=== PATIENT | male | born 1945 | race Caucasian/White ===

== ENCOUNTER 2022-07-22 09:00 | Emergency (ER) | payer MEDICARE, SELFPAY ==
[2022-07-22 09:05] VITALS: BP 127/79; PULSE 92; RESP 20; TEMP 36.1; O2SAT 96; BMI 33.4
--- NOTE | 2022-07-22 09:15 | CRLHL7_ITS ---
For Patients: As a result of the Century Cures Act, medical imaging exams and procedure reports are released immediately into your electronic medical record. You may view this report before your referring provider. If you have questions, please contact your health care provider. Indication: Fall, T11-12 pain extending to the right Technique: Noncontrast axial CT of the thoracic spine with coronal and sagittal reformats. Comparison: No relevant comparison studies available at this institution. Findings: Exaggerated thoracic kyphosis, without significant spondylolisthesis. Anterolateral projecting osteophytes/bridging syndesmophytes from T3 extending caudally throughout the remaining thoracic spine. Nondisplaced, anterior syndesmophyte fracture extending through the ventral cortex of the T8 vertebral body. No obvious involvement of the posterior cortex or posterior elements. No other acute fractures identified. T2 superior endplate compression deformity, presumed chronic. Multiple chronic healed right rib fractures. Incidental bone island left posterior 7th rib. No evidence of significant foraminal or spinal canal stenosis. Bibasilar atelectasis. 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 Small hiatal hernia. Bilateral renal cysts. Scattered aortoiliac atherosclerosis. Impression: 1. Anterolateral bridging syndesmophytes throughout the mid-lower thoracic levels suggestive of DISH, with nondisplaced syndesmophyte fracture at the T8 level, extending through the ventral vertebral body cortex. No evidence of posterior cortical involvement or posterior element extension. 2. Chronic appearing L2 superior endplate compression deformity. Multiple old healed right rib fractures. 3. No evidence of significant foraminal or spinal canal stenosis. Please note that all CT scans at this facility use dose modulation, iterative reconstruction, and/or weight-based dosing when appropriate to reduce radiation dose to as low as reasonably achievable. Dictated by Aretha Chapman MD @ 07/22/2022 11:01:27 AM (Electronically Signed)
--- NOTE | 2022-07-22 09:35 | ED_ITS ---
HPI - Back Pain/Injury General Chief Complaint: Back Injury/Pain Stated Complaint: Fell yesterday, mid back pain Time Seen by Provider: 07/22/22 09:09 History of Present Illness HPI Narrative: 76-year-old man presenting to the emergency department complaint of mid low back pain. Not actually pleuritic. Apparently fell yesterday on the ice right on his midback. Notes he has a history of broken ribs does not think that is probably what is going on here. No neck pain. Did strike his head a little bit but feels that that was minor. Does not have a headache. No nausea. No visual disturbances. No focal weaknesses. Does not have radiating pain down his legs or buttocks but is complaining of some increased swelling in the ankles and lower legs bilaterally. Coughing in particular though causes pain in his mid back. He recalls some oxycodone given the past for orthopedic injury. He says INR last checked was 1.9 about 2 weeks ago. Has not adjusted dosing Related Data Home Medications Medication Instructions Recorded Confirmed albuterol sulfate 90 mcg/actuation inhalation 07/22/22 aerosol inhaler (Ventolin HFA) allopurinol 300 mg tablet mg 07/22/22 amlodipine 2.5 mg tablet mg 07/22/22 atorvastatin 20 mg tablet mg 07/22/22 diltiazem HCl 120 mg mg PO 07/22/22 capsule,extended release 24 hr duloxetine 20 mg capsule,delayed mg PO 07/22/22 release furosemide 20 mg tablet mg 07/22/22 temazepam 15 mg capsule mg 07/22/22 warfarin 5 mg tablet mg 07/22/22 Previous Rx's Medication Instructions Recorded hydrocodone 5 mg-acetaminophen 325 1 - 2 tab PO TID PRN pain #15 tabs 07/22/22 mg tablet sennosides 8.6 mg-docusate sodium 1 - 2 tab-cap PO DAILY PRN 07/22/22 50 mg tablet (Senna with Docusate constipation #30 tabs Sodium) Allergies Allergy/AdvReac Type Severity Reaction Status Date / Time No Known Drug Allergies Allergy Verified 07/22/22 09:04 Review of Systems Status of ROS: Reports: 6 or more systems reviewed and unremarkable except as noted in History and below PFSH PFSH Social History Smoking Status: Former smoker What tobacco products do you use: cigarettes Smoking quit date/years: >15 years ago Second hand tobacco smoke exposure: No How often do you have a drink containing alcohol: 4 or more times a week How many standard drinks containing alcohol do you have on a typical day: 3 or 4 AUDIT-C Alcohol total score: 5 Non-prescribed substance use: denies use service: No Exam Narrative: Exam Narrative: Pleasant NAD. Hard of hearing. Breathing easily. Here with a cane. Skin is warm and dry. No evidence of trauma on his skin. Only little soreness that he identifies is the location in the upper occiput of his head where he believes he hit his head. Neck is supple nontender. Back has some little soreness to palpation around the T11-T12 vertebrae but especially to the right of that. Negative to compression testing oppositional in his chest. Abdomen is obese soft nontender. Lower extremities with 1 to 2+ dependent mildly pitting edema. No erythematous changes. Const: Vital Signs, click to edit/add: Vital Signs - 24 hr 07/22/22 13:55 Temperature 97.7 F Pulse Rate [Right Pulse Oximeter] 56 L Respiratory Rate 16 Blood Pressure [Ri ght Upper Arm] 159/106 H Pulse Oximetry 94 Oxygen Delivery Me thod Room Air Documenting provider has reviewed patient's vital signs: yes Course Vital Signs Vital signs: Initial Vital Signs Temperature 96.9 F L 07/22/22 09:05 Temperature Source Temporal Artery Scan 07/22/22 09:05 Pulse Rate 92 07/22/22 09:05 Respiratory Rate 20 07/22/22 09:05 Blood Pressure 127/79 07/22/22 09:05 Blood Pressure Mean 95 07/22/22 09:05 Blood Pressure Position Sitting 07/22/22 09:05 Pulse Oximetry 96 07/22/22 09:05 Oxygen Delivery Method 07/22/22 09:05 Vital Signs Temperature 96.9 F L 07/22/22 09:05 Pulse Rate 92 07/22/22 09:05 Respiratory Rate 20 07/22/22 09:05 Blood Pressure 127/79 07/22/22 09:05 Pulse Oximetry 96 07/22/22 09:05 Oxygen Delivery Method 07/22/22 09:05 Temperature 97.7 F 07/22/22 13:55 Pulse Rate 56 L 07/22/22 13:55 Respiratory Rate 16 07/22/22 13:55 Blood Pressure 159/106 H 07/22/22 13:55 Pulse Oximetry 94 07/22/22 13:55 Oxygen Delivery Method 07/22/22 13:55 MDM - Back Pain/Injury MDM Narrative Medical decision making narrative: I think CT imaging of the thoracic spine would be in order here. Not convinced that standard x-rays will delineate enough. Was also given 1 tablet of oxycodone followed by 2 tabs of Ganado during extended time in the ER pending imaging. Adequate pain response appeared to be achieved. I did review CT imaging. Radiology over-read below Impression: 1. Anterolateral bridging syndesmophytes throughout the mid-lower thoracic levels suggestive of DISH, with nondisplaced syndesmophyte fracture at the T8 level, extending through the ventral vertebral body cortex. No evidence of posterior cortical involvement or posterior element extension. 2. Chronic appearing L2 superior endplate compression deformity. Multiple old healed right rib fractures. 3. No evidence of significant foraminal or spinal canal stenosis. I discussed these findings with Neurosurgery through [facility] who recommended TLSO placement but also follow-up MRI to verify whether not there was posterior ex tension prior to considering for transport. MRI Impression: 1. Mild-moderate bone edema at the previously described T2 superior endplate compression fracture, suggesting acute/subacute age. 2. Redemonstration of right ventrolateral T8 syndesmophyte fracture with minimal bony edema limited to the ventral body. No extension into the central/dorsal body or posterior elements. 3. No epidural hematoma. No significant spinal canal stenosis, cord compression or cord signal abnormality. Discussed findings again with Neurosurgery and anticipating outpatient follow- up. We made arrangements for [facility] follow up for TLSO fitting and placement and then with Neurosurgery Outpatient Clinic Medical Records Attestation: I reviewed the patient's medical records. Lab Data Attestation: I reviewed the patient's lab results. Labs: Lab Results 07/22/22 Range/Units 12:42 SARS-CoV-2 (PCR) Negative SARS-CoV-2 (Negative) Discharge Plan Discharge Clinical Impression: Fracture of thoracic spine without spinal cord lesion, Back pain Patient Disposition: Home w/ Parent or Adult Condition: Stable Additional Instructions: Please follow-up with appointments as scheduled for you with orthopaedic hospital orthotics and follow-up with [facility] neurosurgery clinic. (See discharge paperwork) Return for new weakness, uncontrolled pain. Ganado as prescribed can make you constipated. Also can make you tired. Remember that each tablet of Ganado has 325 mg of acetaminophen in it. You can take maximum of 1000 mg of acetaminophen per dose 4 times a day. To decrease possible constipation with Ganado stay well-hydrated and take 1-2 senna a day on the days that you are taking Ganado. You will be evaluated for a back brace with [facility] on 07/23/22 with a 3:15pm arrival time. They will contact you to make a second appointment. If you have any questions, please call [phone]. [facility] [address] [place] [address] Your follow up appointment will be at [facility] Neurology Clinic on 08/21/22 with a 2:20pm arrival time. Please enter on the 1st floor of the building, as you will be getting an X-ray first. Then, go up the 3rd floor for your appointment with a 2:50pm arrival time. If you have any questions, please call [phone]. [facility] Neu[facility] [address] [place] [address] Prescriptions: New hydrocodone-acetaminophen 5-325 mg tablet 1 - 2 tab PO TID PRN (Reason: pain) Qty: 15 0RF sennosides-docusate sodium [Senna with Docusate Sodium] 8.6-50 mg tablet 1 - 2 tab-cap PO DAILY PRN (Reason: constipation) Qty: 30 0RF No Action atorvastatin 20 mg tablet Label Comments: TAKE 1 TABLET (20 MG) BY MOUTH ONCE DAILY. amlodipine 2.5 mg tablet Label Comments: TAKE 1 TABLET (2.5 MG) BY MOUTH ONCE DAILY. temazepam 15 mg capsule Label Comments: TAKE 1 CAPSULE (15 MG) BY MOUTH AT BEDTIME IF NEEDED, MAY REPEAT ONCE FOR SLEEP. warfarin 5 mg tablet Label Comments: TAKE ONE TABLET(5MG) BY MOUTH EVERY MON-WED-FRI AND 1&1/2 TABS (7.5MG) ALL OTHER DAYS IN THE EVENING OR DIRECTED diltiazem HCl 120 mg capsule,extended release 24hr PO Label Comments: TAKE 1 CAPSULE (120 MG) BY MOUTH ONCE DAILY. allopurinol 300 mg tablet Label Comments: TAKE ONE TABLET BY MOUTH IN THE MORNING AND ONE-HALF TABLET EVERY EVENING DIRECTED furosemide 20 mg tablet Label Comments: TAKE 1 TABLET (20 MG) BY MOUTH EVERY MORNING. albuterol sulfate [Ventolin HFA] 90 mcg/actuation HFA aerosol inhaler INHALATION Label Comments: INHALE 1-2 PUFFS BY MOUTH EVERY 6 HOURS IF NEEDED FOR SHORTNESS OF BREATH OR WHEEZING. duloxetine 20 mg capsule,delayed release(DR/EC) PO Label Comments: TAKE 1 CAPSULE (20 MG) BY MOUTH ONCE DAILY. Follow Up/Referrals: Mono Burkett MD [Primary Care Provider] - Stand Alone Forms: [employer] Info Instructions
[2022-07-22] MEDS: OXYCODONE 5 MG TABLET PO (09:40)
[2022-07-22 10:50] VITALS: BP 151/98; PULSE 86; RESP 16; O2SAT 95
--- NOTE | 2022-07-22 11:14 | ED.NURSE ---
Patient has bilateral pitting edema +3 L>R. notified and is aware. Patient takes lasix at home.
--- NOTE | 2022-07-22 11:57 | CRLHL7_ITS ---
For Patients: As a result of the Century Cures Act, medical imaging exams and procedure reports are released immediately into your electronic medical record. You may view this report before your referring provider. If you have questions, please contact your health care provider. Indication: Acute fracture noted at T8 on CT scan Technique: Multiplanar, multisequence MRI of the thoracic spine, obtained without contrast. Comparison: Same-day CT thoracic Spine Findings: Normal static alignment of the thoracic spine. No significant spondylolisthesis. The previously noted T2 superior endplate compression fracture demonstrates moderate bony edema, suggesting acute/subacute age. There is less than 50 percent vertebral height loss, and no cortical retropulsion. Cleft-like defect is present along the right ventrolateral T8 vertebral body, corresponding to the syndesmophyte fracture noted on CT. Minimal bony edema is limited to the ventral body/subcortical region, without evidence of extension into the central or dorsal vertebral body. No epidural hematoma. No significant disc bulges or protrusions. No significant foraminal or spinal canal stenosis. The visualized spinal cord appears normal in course, caliber, and intrinsic signal. The prevertebral and paraspinal soft tissues are unremarkable. Impression: 1. Mild-moderate bone edema at the previously described T2 superior endplate compression fracture, suggesting acute/subacute age. 2. Redemonstration of right ventrolateral T8 syndesmophyte fracture with minimal bony edema limited to the ventral body. No extension into the central/dorsal body or posterior elements. 3. No epidural hematoma. No significant spinal canal stenosis, cord compression or cord signal abnormality. Dictated by Aretha Chapman MD @ 07/22/2022 1:24:04 PM (Electronically Signed)
[2022-07-22 13:46] LABS: SARS PCR* Negative SARS-CoV-2 (Negative)
[2022-07-22 13:55] VITALS: BP 159/106; PULSE 56; RESP 16; TEMP 36.5; O2SAT 94
[2022-07-22] MEDS: HYDROCODONE-ACETAMIN 5-325 MG 1 TAB 2 TAB PO (14:39)
--- NOTE | 2022-07-22 15:15 | ED.NURSE ---
Patient was discharged. Was able to void on own in bathroom and able to ambulate to bathroom and back. Pain was improved since he got here but just hurts getting up and down. Follow up appointments were set up for patient. Granddaughter ursula was called and reviewed his discharge appointments and medications with her. She stated that her and some of his other grandkids will keep an eye on him and help him to his appointments. Ousmane and kathy were sent to [facility]. Left ambulatory .
--- NOTE | 2022-07-23 09:57 | ED.NURSE ---
[facility] for [facility]. Dr Gan's name given.
== END 2022-07-22 15:18 | disposition home or self-care (01) ==
PROVIDERS: Emergency Provider Family Medicine; PCP Surgery
DX: S22.029A Unspecified fracture of second thoracic vertebra, initial encounter for closed fracture (principal)
CPT/HCPCS: 72128; 72146; 87635; 99284; A9270

== ENCOUNTER 2022-08-07 10:19 | Emergency (ER) | payer MEDICARE, SELFPAY ==
[2022-08-07] VITALS (11 sets, daily range): BP systolic 135–161; BP diastolic 88–114; PULSE 71–91; RESP 18; TEMP 35.7; O2SAT 92–96; BMI 33.4
--- NOTE | 2022-08-07 11:42 | ED_ITS ---
HPI - General Adult General Chief complaint: Unspecified Complaint, Adult Stated complaint: High BP Time Seen by Provider: 08/07/22 11:10 History of Present Illness HPI narrative: 76-year-old man presenting to the emergency department with complaint of high blood pressure and feeling ?off?. Thought like he might be about to be dizzy but was not actually dizzy. Maybe mild sense of lightheadedness. No headache no visual changes no shortness of breath no chest pain no cough or cold s ymptoms. No sensory loss and no focal weakness. Not generally weak either. First thing he says to me is that he has been experiencing pain in his back. I saw him around 2 weeks ago and diagnosed with a low thoracic spine fracture. He was referred to neurosurgery clinic and then to receive a TLSO brace. Apparently has not managed to accomplish this yet due to pending information sharing? He says he has been weaned down on his hydrocodone to 3 a day. And feels like his pain is not completely controlled. Work in construction/wood working. He has also been discontinued on temazepam as of 12 days ago. Yesterday evening/last night partly related to pain he did have 5 Tequila drinks and a few beers. This is rather atypical. Normally having 1 or 2 beers. He has had only the amount of water he took with his pills today. It is now noon. As he was feeling ?off? he did check his blood pressure and noted it to be 180s over 130s. He only checked at the 1 time. This got him concerned and as he can get a clinic appointment he presented to the ER. On further questioning it sounds like he is worried about potentially having a stroke. Related Data Home Medications Medication Instructions Recorded Confirmed albuterol sulfate 90 mcg/actuation inhalation 07/22/22 aerosol inhaler (Ventolin HFA) allopurinol 300 mg tablet mg 07/22/22 amlodipine 2.5 mg tablet mg 07/22/22 atorvastatin 20 mg tablet mg 07/22/22 diltiazem HCl 120 mg mg PO 07/22/22 capsule,extended release 24 hr duloxetine 20 mg capsule,delayed mg PO 07/22/22 release furosemide 20 mg tablet mg 07/22/22 temazepam 15 mg capsule mg 07/22/22 warfarin 5 mg tablet mg 07/22/22 Previous Rx's Medication Instructions Recorded hydrocodone 5 mg-acetaminophen 325 1 - 2 tab PO TID PRN pain #15 tabs 07/22/22 mg tablet sennosides 8.6 mg-docusate sodium 1 - 2 tab-cap PO DAILY PRN 07/22/22 50 mg tablet (Senna with Docusate constipation #30 tabs Sodium) gabapentin 300 mg capsule 300 mg PO TID #90 caps 08/07/22 hydrocodone 5 mg-acetaminophen 325 1 - 2 tab PO TID PRN pain #21 tabs 08/07/22 mg tablet Allergies Allergy/AdvReac Type Severity Reaction Status Date / Time No Known Drug Allergies Allergy Verified 07/22/22 09:04 Review of Systems Status of ROS: Reports: 10 or more systems reviewed and unremarkable except as noted in History and below [facility] Social History Smoking Status: Former smoker What tobacco products do you use: cigarettes Smoking quit date/years: >15 years ago Second hand tobacco smoke exposure: No How often do you have a drink containing alcohol: 4 or more times a week How many standard drinks containing alcohol do you have on a typical day: 3 or 4 AUDIT-C Alcohol total score: 5 Non-prescribed substance use: denies use service: No Exam Narrative: Exam Narrative: Pleasant. NAD. Hard of hearing such that I actually have to lower my mask so he can read my lips. Breathing easily. Speaking fluidly. Moving all extremities without difficulty/good strength. Trace pitting edema around the ankles and just above. He is well perfused. Lungs are clear. Heart is with an irregularly irregular rhythm consistent with history of atrial fibrillation. No murmur appreciated. Admittedly distant. Abdomen is overweight soft and nontender. Cranial nerves 2-12 look to be intact. No loss of sensation. Const: Vital Signs, click to edit/add: Vital Signs - 24 hr 08/07/22 10:28 08/07/22 11:30 08/07/22 11:35 Temperature 96.2 F L Pulse Rate Pulse Rate [Left P ulse Oximeter] 89 Pulse Rate [orthos tatic lying Pulse Oximeter] 85 Pulse Rate [orthos tatic sitting Righ t Pulse Oximeter] 90 Pulse Rate [orthos tatic standing Rig ht Pulse Oximeter] 85 Respiratory Rate 18 Blood Pressure 141/91 H Blood Pressure [Ri ght Upper Arm] 142/102 H Blood Pressure [or thostatic lying Ri ght Arm] 142/114 H Blood Pressure [or thostatic sitting Right Arm] 141/91 H Blood Pressure [or thostatic standing Right Arm] 144/88 H Pulse Oximetry 95 Oxygen Delivery Me thod Room Air 08/07/22 11:36 08/07/22 11:37 08/07/22 12:00 Temperature Pulse Rate 83 84 82 Pulse Rate [Left P ulse Oximeter] Pulse Rate [orthos tatic lying Pulse Oximeter] Pulse Rate [orthos tatic sitting Righ t Pulse Oximeter] Pulse Rate [orthos tatic standing Rig ht Pulse Oximeter] Respiratory Rate Blood Pressure 144/88 H Blood Pressure [Ri ght Upper Arm] Blood Pressure [or thostatic lying Ri ght Arm] Blood Pressure [or thostatic sitting Right Arm] Blood Pressure [or thostatic standing Right Arm] Pulse Oximetry 92 94 94 Oxygen Delivery Me thod 08/07/22 12:03 08/07/22 12:30 08/07/22 12:32 Temperature Pulse Rate 85 71 91 Pulse Rate [Left P ulse Oximeter] Pulse Rate [orthos tatic lying Pulse Oximeter] Pulse Rate [orthos tatic sitting Righ t Pulse Oximeter] Pulse Rate [orthos tatic standing Rig ht Pulse Oximeter] Respiratory Rate Blood Pressure 136/91 H 135/91 H Blood Pressure [Ri ght Upper Arm] Blood Pressure [or thostatic lying Ri ght Arm] Blood Pressure [or thostatic sitting Right Arm] Blood Pressure [or thostatic standing Right Arm] Pulse Oximetry 96 92 93 Oxygen Delivery Me thod 08/07/22 13:00 08/07/22 13:02 Temperature Pulse Rate 83 84 Pulse Rate [Left P ulse Oximeter] Pulse Rate [orthos tatic lying Pulse Oximeter] Pulse Rate [orthos tatic sitting Righ t Pulse Oximeter] Pulse Rate [orthos tatic standing Rig ht Pulse Oximeter] Respiratory Rate Blood Pressure 161/110 H Blood Pressure [Ri ght Upper Arm] Blood Pressure [or thostatic lying Ri ght Arm] Blood Pressure [or thostatic sitting Right Arm] Blood Pressure [or thostatic standing Right Arm] Pulse Oximetry 95 96 Oxygen Delivery Me thod Documenting provider has reviewed patient's vital signs: yes Course Vital Signs Vital signs: Initial Vital Signs Temperature 96.2 F L 08/07/22 10:28 Temperature Source Temporal Artery Scan 08/07/22 10:28 Pulse Rate 89 08/07/22 10:28 Pulse Rhythm 08/07/22 10:28 Pulse Strength 3+ Normal 08/07/22 10:28 Respiratory Rate 18 08/07/22 10:28 Blood Pressure 142/102 H 08/07/22 10:28 Blood Pressure Mean 115 08/07/22 10:28 Blood Pressure Position Sitting 08/07/22 10:28 Pulse Oximetry 95 08/07/22 10:28 Oxygen Delivery Method 08/07/22 10:28 Vital Signs Temperature 96.2 F L 08/07/22 10:28 Pulse Rate 89 08/07/22 10:28 Respiratory Rate 18 08/07/22 10:28 Blood Pressure 142/102 H 08/07/22 10:28 Pulse Oximetry 95 08/07/22 10:28 Oxygen Delivery Method 08/07/22 10:28 Temperature 96.2 F L 08/07/22 10:28 Pulse Rate 84 08/07/22 13:02 Respiratory Rate 18 08/07/22 10:28 Blood Pressure 161/110 H 08/07/22 13:02 Pulse Oximetry 96 08/07/22 13:02 Oxygen Delivery Method 08/07/22 10:28 Medical Decision Making MDM Narrative Medical decision making narrative: Initial EKG reviewed by me does show atrial fibrillation rate controlled at 90. No ischemic changes noted otherwise. Blood pressure on rechecks have improved to 140/88. Orthostatics are unremarkable other than he thought he felt a little unsteady when he went to stand. I would encourage more hydration. I did offer IV placement and further laboratory evaluation which I think would be generally unremarkable. Offered reassurance is not having a stroke. He has continued to take his Coumadin. Mr. Goldberg says that he is reassured which have done so far and does not feel like he needs more things done. Am waiting at this point though to try to clarify what the holdup is for this TLSO bracing that he needed to be in some time back. Patient advocate and are hug was able to assist with advancing this process. Paperwork was located for signature [facility] Discharge Plan Discharge Clinical Impression: Malaise, Back pain Patient Disposition: Home, Self-Care Condition: Stable Additional Instructions: Yes I definitely think you need to do a better job with hydration; particularly if you are going to have that much alcohol at once. I would really recommend against drinking that much alcohol and following up with your doctor to discuss a better pain plan. Since your almost out of your [place], will prescribe some more. Remember to try to keep constipation away with senna and staying well hydrated. Adding gabapentin to your pill regimen to see if that might also be helpful. Please schedule a follow-up with your primary care provider for 1-2 weeks from now to follow-up on your blood pressure as well as your pain. This would be helpful to reassess once your brace is in place. Regarding your TLSO brace, [employer] will be giving you in a call within 2 weeks. If you have any questions, please call [phone]. Prescriptions: New gabapentin 300 mg capsule 300 mg PO TID Qty: 90 2RF hydrocodone-acetaminophen 5-325 mg tablet 1 - 2 tab PO TID PRN (Reason: pain) Qty: 21 0RF No Action atorvastatin 20 mg tablet Label Comments: TAKE 1 TABLET (20 MG) BY MOUTH ONCE DAILY. amlodipine 2.5 mg tablet Label Comments: TAKE 1 TABLET (2.5 MG) BY MOUTH ONCE DAILY. temazepam 15 mg capsule Label Comments: TAKE 1 CAPSULE (15 MG) BY MOUTH AT BEDTIME IF NEEDED, MAY REPEAT ONCE FOR SLEEP. warfarin 5 mg tablet Label Comments: TAKE ONE TABLET(5MG) BY MOUTH EVERY MON-WED-FRI AND 1&1/2 TABS (7.5MG) ALL OTHER DAYS IN THE EVENING OR DIRECTED diltiazem HCl 120 mg capsule,extended release 24hr PO Label Comments: TAKE 1 CAPSULE (120 MG) BY MOUTH ONCE DAILY. allopurinol 300 mg tablet Label Comments: TAKE ONE TABLET BY MOUTH IN THE MORNING AND ONE-HALF TABLET EVERY EVENING DIRECTED furosemide 20 mg tablet Label Comments: TAKE 1 TABLET (20 MG) BY MOUTH EVERY MORNING. albuterol sulfate [Ventolin HFA] 90 mcg/actuation HFA aerosol inhaler INHALATION Label Comments: INHALE 1-2 PUFFS BY MOUTH EVERY 6 HOURS IF NEEDED FOR SHORTNESS OF BREATH OR WHEEZING. duloxetine 20 mg capsule,delayed release(DR/EC) PO Label Comments: TAKE 1 CAPSULE (20 MG) BY MOUTH ONCE DAILY. hydrocodone-acetaminophen 5-325 mg tablet 1 - 2 tab PO TID PRN (Reason: pain) Qty: 15 0RF sennosides-docusate sodium [Senna with Docusate Sodium] 8.6-50 mg tablet 1 - 2 tab-cap PO DAILY PRN (Reason: constipation) Qty: 30 0RF Follow Up/Referrals: Mono Burkett MD [Primary Care Provider] - Stand Alone Forms: [place] Info Instructions
== END 2022-08-07 13:24 | disposition home or self-care (01) ==
PROVIDERS: Emergency Provider Family Medicine; PCP Surgery
DX: M54.9 Dorsalgia, unspecified (principal); R53.81 Other malaise
CPT/HCPCS: 93005; 99283; 99284

== ENCOUNTER 2024-07-29 11:52 | Outpatient (CLI) | payer MEDICARE, SELFPAY | END 2024-07-29 11:53 | disposition home or self-care (01) | LOC: AMB 07-30 11:44 | PROVIDERS: PCP Surgery; Visit Provider Family Medicine | DX: S59.911A Unspecified injury of right forearm, initial encounter (principal); W00.0XXA Fall on same level due to ice and snow, initial encounter; Y93.H1 Activity, digging, shoveling and raking; Y92.007 Garden or yard of unspecified non-institutional (private) residence as the place of occurrence of the external cause | CPT/HCPCS: A0425; A0433 ==